=== PATIENT | male | born 1945 ===

== ENCOUNTER → 2018-09-06 | Outpatient (CLI) | payer OTHER ==
[~2018-09-06] VITALS: Ht 182.9 cm; Wt 86.2 kg
[~2018-09-06] MED LIST: CHILDREN'S ASPI81 M1 PO; DICLOFENAC PO; LIPITOR 20 MG T20 M1 PO; TERAZOSIN HCL10 MG PO; TRAMADOL 50 MG50 MG PO
[2018-09-06 14:28] VITALS: BP 118/69
--- NOTE | 2018-09-06 15:37 | NUR ---
Pain Clinic Assessment: 1. History of Osteoarthritis: History of Rheumatoid Arthritis: 2. Height: 6 ft. 0 in. 182.9 cm. Weight: 190.0 lb. oz. 86.184 kg. Patient's BMI: 25.8 3. Vital Signs: BP: 118/69 Pulse: 73 Resp: 14 Temp: 02 Sat: 95 ECG Mon: 4. Pain Intensity: 3 5. Fall Risk: Dizziness: N Needs help standing or walking: N Fallen in the last 3 months: N Fall risk comments: 6. Patient on Blood Thinner: None 7. History of Hypertension: N 8. Opioid Therapy greater than 6 weeks: N Opiate Contract Signed: 9. Risk Assessment Tool Provided: LOW 10. Functional Assessment Tool: 11. Recreational Drug Use: Never Drug Type: Tobacco Use: Never Smoker Tobacco Type: Amount or Packs/day: How Many Years: Alcohol Use: Yes Frequency: Weekly Quant: 5
--- NOTE | 2018-09-14 17:25 | HPC ---
[facility] [address] [place] [address] PAIN MANAGEMENT CONSULTATION Name: NANCIE CROOKS Room #: REG MING Hughes.#: [id number] Admission: 09/06/18 ������������������ Attend Phys: Syed Basurto MD Discharge: ������������������ Date of : 41 Report #: [id number] THIS REPORT FOR: //name// CC: [facility] physician/PCP Syed Basurto DATE OF SERVICE: 09/06/2018 CHIEF COMPLAINT: Low back pain with radiation to both buttocks. Multi-level degenerative spine disease. The patient is here today at the request of his . His Etta has been a longstanding patient who I treat for osteoarthritis. The patient is a very fit and active 73-year-old gentleman who is here today to discuss pain across his low back. He has had some chronic back pain over the years, but has certainly worked through it. He rode a bike from [place], [place] all the way to [place] several years ago. He has remained active swimming up to a mile even recently at [place]. He is finding the biking is harder for him in the flexion position. He had an MRI scan performed while in [place], [place], where he and his spent 9 months. That showed significant diffuse degenerative changes at multiple levels throughout the lumbar spine. Changes are extensive including the disk bulging and facet arthropathy at many levels as well as spinal and neural foraminal stenosis that are most notable at L3-L4 and L4-L5. The patient's symptoms are primarily low back with some radiation now into the buttocks. He has had some injection treatments in [place], but these were facet directed and not directed at his spinal stenosis. He did not respond favorably noting no improvement. He is now here today hoping that he can get some relief, so that he can continue to walk, hike and bike as he enjoys. He scores his average daily pain as a 4 and at its worse it became an 8. He has continued to remain active and does back exercises in the sitting and on the floor. He complains that his back aches in the morning when he first gets up. He takes diclofenac 100 mg b.i.d., uses diclofenac gel and tramadol first thing in the morning to get going, which generally works well. All medications reviewed and reconciled include atorvastatin, terazosin, diclofenac, tramadol and baby aspirin. ALLERGIES: None. 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 He had eye surgery in 2019. He was diagnosed with hepatitis C several years ago and was treated with Harvoni with cure. He believes that he got his hepatitis C from blood transfusions that occurred around the time that he was hospitalized for his vena caval obstruction. SOCIAL HISTORY: He is . Denies use of tobacco, drinks alcohol in a social setting 4 to 5 times a week. 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 REVIEW OF SYSTEMS: Positive for pain standing and weightbearing. He denies chest pain or shortness of breath. PHYSICAL EXAMINATION: GENERAL: Very pleasant younger than his age appearing 73-year-old. He moves easily from sitting to standing position, ambulates without antalgic features. Denies numbness, tingling or weakness. HEENT: Within normal limits. NECK: Supple. CHEST: Clear to auscultation. CARDIAC: Rhythm was regular. MUSCULOSKELETAL: Examination of the spine reveals good lordotic curve in the standing position. He has good flexion, extension and rotational movements without exacerbation of significant low back or hip pain. Straight leg raising is mildly positive radiating some pain into the buttocks. Sensation is intact. IMPRESSION: Low back pain with multilevel degenerative disk disease, moderate to severe with spinal stenosis, most prominent at L3-L4. RECOMMENDATIONS: I think he would benefit from an epidural injection. The potential risks and benefits were discussed. He would like to proceed. He was taken to the fluoroscopic suite, placed prone, skin prepped with ChloraPrep. Skin anesthetized over the L4-L5 interspace. A 20-gauge Tuohy epidural needle advanced first attempt in the epidural space with loss of resistance technique. There was no blood or CSF aspirated. A 1 mL of Omnipaque injected. Good spread of dye observed into the epidural space followed by 3 mL of 0.5% lidocaine mixed with 80 mg of triamcinolone. He tolerated the procedure well. He was observed for 45 minutes and discharged with a pain score of 0. Follow up as needed. ��������������������������������������������� <ELECTRONICALLY SIGNED> ���������������������������������������� By: Syed Basurto MD ��������������������������������������������� 09/14/18 1725 [id number] [id number] Syed Basurto MD /nt
== END | disposition home or self-care (01) ==
LOC: PAIN 07:01
DX: M51.16 Intervertebral disc disorders with radiculopathy, lumbar region (principal); M48.061 Spinal stenosis, lumbar region without neurogenic claudication; G89.29 Other chronic pain; Z98.890 Other specified postprocedural states; Z79.82 Long term (current) use of aspirin; Z79.899 Other long term (current) drug therapy

== ENCOUNTER → 2018-10-21 | Outpatient (CLI) | payer OTHER ==
[~2018-10-21] VITALS: Ht 182.9 cm; Wt 85.7 kg
[2018-10-21 09:14] VITALS: BP 147/92
--- NOTE | 2018-10-21 09:22 | NUR ---
Pain Clinic Assessment: 1. History of Osteoarthritis: Not Applicable History of Rheumatoid Arthritis: Not Applicable 2. Height: 6 ft. 0 in. 182.9 cm. Weight: 189.0 lb. oz. 85.730 kg. Patient's BMI: 25.6 3. Vital Signs: BP: 147/92 Pulse: 72 Resp: 16 Temp: 02 Sat: 97 ECG Mon: 4. Pain Intensity: 3 5. Fall Risk: Dizziness: N Needs help standing or walking: N Fallen in the last 3 months: N Fall risk comments: 6. Patient on Blood Thinner: None 7. History of Hypertension: N 8. Opioid Therapy greater than 6 weeks: N Opiate Contract Signed: 9. Risk Assessment Tool Provided: LOW 10. Functional Assessment Tool: 11. Recreational Drug Use: Never Drug Type: Tobacco Use: Never Smoker Tobacco Type: Amount or Packs/day: How Many Years: Alcohol Use: Yes Frequency: Quant:
--- NOTE | 2018-10-28 16:33 | HPC ---
[facility] [address] [place] [address] PAIN MANAGEMENT CONSULTATION Name: NANCIE CROOKS Room #: REG MING Antionette#: [id number] Admission: 10/21/18 Attend Phys: Syed Basurto MD Discharge: Date of : 41 Report #: [id number] THIS REPORT FOR: //name// CC: [facility] physician/PCP Syed Basurto DATE OF SERVICE: 10/21/2018 Followup visit for low back pain with radiculopathy. The patient returns to pain clinic today for repeat epidural injection. He has had a good improvement with the previous injection. Duration of response; however, was shorter than we had hoped. Pain relief was good for about 3 weeks. We will repeat the injection today hoping for a better duration of response, although we cannot promise that of course. I reviewed his plain x-rays as well as an MRI from May, demonstrates that there is significant degenerative change at multiple levels including a mild anterolisthesis of L4 on L5, broad-based disk bulging and changes from L1-L2 through L5-S1. There is advanced degenerative change particularly at L2-L3 and L4-L5 with some dextroscoliosis. There is moderate spinal stenosis at L3-L4 and some central crowding of the nerve roots in addition to neural foraminal stenosis. Neural foraminal stenosis is worse on the right at L3-L4 and more notable on the right as well at L4-L5. His symptoms are mostly in his back radiating, however, somewhat into his low buttocks. There are chronic in nature, but have been increasing in severity. He scores the pain as a 3/10. He has noted increasing pain with walking and biking, two activities that he enjoys greatly. PHYSICAL EXAMINATION: GENERAL: He is a fit-appearing 73-year-old gentleman. VITAL SIGNS: Blood pressure 118/69, heart rate 73. He is 6 feet tall, 190 pounds, his BMI is 25.8. MUSCULOSKELETAL: He moves from a sitting to standing position and ambulates with only mild antalgic features. Tenderness across the lumbosacral segment is noted. Mild straight leg raising reproduces pain into the buttocks. IMPRESSION: Low back pain with multilevel degenerative disk disease, moderate to severe with spinal stenosis, most prominent at L3-L4. Neural foraminal narrowing is noted as well. RECOMMENDATIONS: An epidural steroid injection has provided short term, but meaningful pain relief. We will see if we can extend it with a second [address] [address] PAIN MANAGEMENT CONSULTATION Name: NANCIE CROOKS Room #: REG CLForrest LantiguaCyndiStacyCyndi#: [id number] Admission: 10/21/18 Attend Phys: Syed Basurto MD Discharge: Date of : 41 Report #: [id number] injection. We discussed facet arthropathy and treatments that are currently common place for low back pain. Radiofrequency lesioning and radiofrequency ablation is helpful for select patients, although I feel that he has so much diffuse facet arthropathy that it would be difficult to determine what levels are most likely treated. I reviewed the procedure with him including two diagnostic blocks followed by bilateral multiple level treatments and I am not currently recommending that he undergo those treatments in my clinic. He has a physician in [place] where he spends most of his time in [place]. He can discuss this further with them. PROCEDURE: L3-L4 lumbar epidural injection under fluoroscopic guidance. He was taken to fluoroscopic suite, placed prone, skin prepped with ChloraPrep. Skin anesthetized over the L3-L4 interspace. A 20-gauge Tuohy epidural needle was advanced first attempt in the epidural space using loss of resistance technique. There was no blood or CSF aspirated. A 0.25 mL of Omnipaque was injected with an excellent epidurogram achieved. It was then followed by 3 mL of 0.5% lidocaine mixed with 80 mg of triamcinolone. He tolerated the procedure well and there were no complications. Pain score was still about a 4 in recovery room before discharge. Hopefully, he will begin to see results in the next day or two. Follow up as needed. I did prescribe for him tramadol 50 mg 120 tablets 1 q.6 hours. He understands the importance of safeguarding these mild opioid medications. He is grateful for the pain relief he gets and the improvement that it provides him, particularly when he plays golf. <ELECTRONICALLY SIGNED> By: Syed Basurto MD 10/28/18 1633 [id number] [id number] Syed Basurto MD /nt
== END | disposition home or self-care (01) ==
LOC: PAIN 06:46
DX: M51.16 Intervertebral disc disorders with radiculopathy, lumbar region (principal); M48.061 Spinal stenosis, lumbar region without neurogenic claudication; G89.29 Other chronic pain; Z79.82 Long term (current) use of aspirin; Z79.899 Other long term (current) drug therapy; Z98.890 Other specified postprocedural states

== ENCOUNTER → 2020-10-15 | Outpatient (CLI) | payer OTHER ==
[~2020-10-15] VITALS: Ht 182.9 cm; Wt 82.6 kg
[~2020-10-15] MED LIST changes: +TRAMADOL HCL E200 MG PO
[2020-10-15 14:12] VITALS: BP 141/87
--- NOTE | 2020-10-15 14:41 | NUR ---
Pain Clinic Assessment: 1. History of Osteoarthritis: Not Applicable History of Rheumatoid Arthritis: Not Applicable 2. Height: 6 ft. 0 in. 182.9 cm. Weight: 182.2 lb. oz. 82.645 kg. Patient's BMI: 24.7 3. Vital Signs: BP: 141/87 Pulse: 70 Resp: 20 Temp: 02 Sat: 97 ECG Mon: 4. Pain Intensity: 2 WITH MEDS 5. Fall Risk: Dizziness: N Needs help standing or walking: N Fallen in the last 3 months: N Fall risk comments: 6. Patient on Blood Thinner: None 7. History of Hypertension: N 8. Opioid Therapy greater than 6 weeks: N Opiate Contract Signed: 9. Risk Assessment Tool Provided: LOW 10. Functional Assessment Tool: 11. Recreational Drug Use: Never Drug Type: Tobacco Use: Never Smoker Tobacco Type: Amount or Packs/day: How Many Years: Alcohol Use: Yes Frequency: Quant:
== END ==
LOC: PAIN 07:54
PROVIDERS: ATTEND Clinical Nurse Specialist Adult Health
DX: M51.36 Other intervertebral disc degeneration, lumbar region (principal); M48.061 Spinal stenosis, lumbar region without neurogenic claudication; Z79.899 Other long term (current) drug therapy; Z79.891 Long term (current) use of opiate analgesic; Z72.89 Other problems related to lifestyle